=== PATIENT | female | born 1955 ===

== ENCOUNTER 2024-10-09 15:25 | Outpatient (REF) | payer OTHER, SELFPAY ==
[2024-10-09 15:53] LABS: Hematocrit 41.7 % (36.0-48.0); Hemoglobin 12.8 g/dL (12.0-16.0); Mean Corpuscular HGB Conc 30.7 g/dL (29.9-35.2); Mean Corpuscular Volume 107.5 fL (81.0-99.0); Platelet Count 74 10^3/uL (150-450); Red Blood Count 3.88 10^6/uL (4.20-5.40); Red Cell Distribution Width 17.6 % (11.0-15.0); White Blood Count 12.1 10^3/uL (4.0-11.0)
[2024-10-09 16:19] LABS: Lymphocytes Absolute Manual 1.93 10^3/uL (1.20-3.80); Monocytes Absolute Manual 0.48 10^3/uL (0.30-0.80); Segmented Neut Absolute Manual 9.68 10^3/uL (1.4-6.5)
== END 2024-10-09 15:26 | disposition home or self-care (01) ==
LOC: LAB 15:25
PROVIDERS: PCP Family Medicine; Visit Provider Family Medicine
DX: Z79.899 Other long term (current) drug therapy (principal)
CPT/HCPCS: 36415; 85007; 85027

== ENCOUNTER 2024-10-11 10:59 | Emergency (ER) | payer OTHER, SELFPAY ==
[2024-10-11] VITALS (44 sets, daily range): BP systolic 50–103; BP diastolic 0–68; PULSE 77–114; TEMP 36.7; O2SAT 34–100; BMI 27.5
--- NOTE | 2024-10-11 11:02 | ECG_ITS ---
[facility] Test Date: 2024-10-11 Pat Name: VIDHI MONTELONGO Department: Room: - Gender: Female [employer]: : 1955 Requested By: 1030 Order Number: [id number] Reading MD: GHASSAN DOMÍNGUEZ M.D. Measurements Intervals [place] Rate: 110 P: 70 SC: 164 QRS: -31 QRSD: 72 T: 18 QT: 344 QTc: 409 Interpretive Statements 1120 Sinus tachycardia 3333 Anterolateral myocardial infarction, probably old 3634 Inferior myocardial infarction, age undetermined 8102 Low QRS voltage in chest leads 9150 abnormal ECG No previous ECG available for comparison Electronically Signed On 10-11-2024 15:59:44 EDT by GHASSAN DOMÍNGUEZ M.D.
--- NOTE | 2024-10-11 11:03 | ED.GENADUL1 ---
HPI HPI - General Adult General Chief complaint: Altered Mental Status Stated complaint: SOB LOW PULSE OX Time Seen by Provider: 10/11/24 11:01 History of Present Illness HPI narrative: 68-year-old female presents to the emergency department for apparent altered mental status. [facility] and they were reportedly called for low blood pressure and they transported her here. She reportedly had low blood pressure yesterday as well. She has dementia and is unable to give us any history. It is not clear what her baseline is. No further history is obtainable. Related Data Home Medications ?Medication ?Instructions ?Recorded ?Confirmed albuterol sulfate 2.5 mg/3 mL 2.5 mg inhalation Q6H PRN 10/11/24 10/11/24 (0.083 %) solution for nebulization shortness of breath or wheezing amiodarone 200 mg tablet 200 mg PO DAILY 10/11/24 10/11/24 apixaban 2.5 mg tablet (Eliquis) 2.5 mg PO BID 10/11/24 10/11/24 aspirin 81 mg chewable tablet 81 mg PO DAILY 10/11/24 10/11/24 atorvastatin 40 mg tablet 40 mg PO QPM 10/11/24 10/11/24 escitalopram oxalate 5 mg tablet 5 mg PO DAILY 10/11/24 10/11/24 fludrocortisone 0.1 mg tablet 0.1 mg PO DAILY 10/11/24 10/11/24 lactulose 10 gram/15 mL oral 23 ml PO DAILY 10/11/24 10/11/24 solution metoprolol succinate 25 mg 25 mg PO DAILY 10/11/24 10/11/24 tablet,extended release 24 hr midodrine 10 mg tablet 10 mg PO Q8H PRN hypotension 10/11/24 10/11/24 midodrine 10 mg tablet 10 mg PO TID 10/11/24 10/11/24 mirtazapine 15 mg tablet (Remeron) 7.5 mg PO .QHS 10/11/24 10/11/24 nicotine 14 mg/24 hr daily 1 patch transdermal DAILY 10/11/24 10/11/24 transdermal patch (Nicoderm CQ) omeprazole 20 mg capsule,delayed 20 mg PO DAILY 10/11/24 10/11/24 release ondansetron HCl 4 mg tablet 4 mg PO Q8H PRN nausea and vomiting 10/11/24 10/11/24 sevelamer HCl 800 mg tablet 800 mg PO TID 10/11/24 10/11/24 Allergies Allergy/AdvReac Type Severity Reaction Status Date / Time No Known Drug Allergies Allergy Verified 10/11/24 12:16 Opioid HPI Opioid Management Most Recent Opioid Data: No Data to Display Review of Systems ROS Narrative Not obtainable, dementia Exam Narrative Exam Narrative: Nurses note and vital signs reviewed and patient is not hypoxic. General: The patient appears confused and in no apparent respiratory distress Skin: Cool on her extremities. She has some mottling in her feet and hands Head: Normocephalic, atraumatic Eye: Normal conjunctiva, no drainage Ears, Nose, Mouth, and Throat: oral mucosa is dry. Nares patent. Cardiovascular: Regular Rate and Rhythm Respiratory: Patient is in no distress, no accessory muscle use, lungs are clear to auscultation, no wheezing, rales or rhonchi GI: Soft and no apparent tenderness Musculoskeletal: Feet and hands are cool to touch. Neurological: She does not seem to follow commands Psychiatric: Cannot be assessed Constitutional Vital Signs, click to edit/add: Last Vital Signs Temp 98.1 F 10/11/24 13:58 Pulse 89 10/11/24 13:22 Resp 18 10/11/24 13:22 BP 72/48 L 10/11/24 14:15 Pulse Ox 96 10/11/24 13:22 O2 Del Method Room Air 10/11/24 10:58 Course Vital Signs Vital signs: Vital Signs Pulse Rate 107 H 10/11/24 10:58 Respiratory Rate 16 10/11/24 10:58 Pulse Oximetry 88 L 10/11/24 10:58 Oxygen Delivery Method Room Air 10/11/24 10:58 Temperature 98.1 F 10/11/24 13:58 Pulse Rate 89 10/11/24 13:22 Respiratory Rate 18 10/11/24 13:22 Blood Pressure 72/48 L 10/11/24 14:15 Pulse Oximetry 96 10/11/24 13:22 Oxygen Delivery Method Room Air 10/11/24 10:58 Medical Decision Making MDM Narrative Medical decision making narrative: The patient presented with altered mental status and low blood pressure. Peripheral IV access was not possible so her dialysis port was utilized for blood draw and for IV fluids and antibiotics. She is also being started on Levophed after being given 1 L of normal saline. I have spoken to Dr. Mcmahon at [facility] who agrees with this treatment plan including no further large amounts of IV fluids and starting Levophed. The patient was given vancomycin and Zosyn here. Findings are discussed thoroughly with her significant other, Sushila, who requested transfer to [facility]. Initial troponin was elevated and repeat is ordered and pending. This elevated troponin is likely due to her renal failure and hypotension. Differential Diagnosis Differential Diagnosis: Pneumonia, COVID, influenza, UTI, sepsis Lab Data Lab results reviewed: Yes I reviewed the patient's lab results Labs: Lab Results 10/11/24 10/11/24 10/11/24 Range/Units 11:36 12:08 12:12 WBC 21.1 H (4.0-11.0) 10^3/uL RBC 4.09 L (4.20-5.40) 10^6/uL Hgb 13.5 (12.0-16.0) g/dL Hct 43.9 (36.0-48.0) % MCV 107.3 H (81.0-99.0) fL MCH 33.0 (26.7-34.0) pg MCHC 30.8 (29.9-35.2) g/dL RDW 18.3 H (11.0-15.0) % Plt Count 70 L (150-450) 10^3/uL MPV 12.3 (9.5-13.5) fL Neut % (Auto) 90.8 H (43.0-75.0) % Lymph % (Auto) 4.8 L (20.5-60.0) % Nance % (Auto) 3.1 (1.7-12.0) % Eos % (Auto) 0.0 L (0.9-7.0) % Baso % (Auto) 0.2 (0.2-2.0) % Neut # (Auto) 19.2 H (1.4-6.5) 10^3/uL Lymph # (Auto) 1.0 L (1.2-3.8) 10^3/uL Nance # (Auto) 0.7 (0.3-0.8) 10^3/uL Eos # (Auto) 0.0 (0.0-0.7) 10^3/uL Baso # (Auto) 0.1 (0.0-0.1) 10^3/uL Abs Immat Gran (auto) 0.24 H (0.00-0.03) 10^3/uL Imm/Tot Granulo (auto) 1.1 H (0.0-0.5) % Sodium 147 H (136-145) mmol/L Potassium 4.6 (3.5-5.1) mmol/L Chloride 104 (98-107) mmol/L Carbon Dioxide 15.2 L (21.0-32.0) mmol/L Anion Gap 32.4 BUN 58.0 H (7.0-18.0) mg/dL Creatinine 8.17 H* (0.55-1.02) mg/dL Est GFR ( Amer) 6 L (>=60 mL/min/1.73m^2) Est GFR (Non-Af Amer) 5 L (>=60 mL/min/1.73m^2) BUN/Creatinine Ratio 7.1 Glucose 139 H (74-106) mg/dL Lactate 12.4 H* (0.4-2.0) mmol/L Calcium 10.4 H (8.5-10.1) mg/dL Troponin I High Sens 595.5 H* (4.0-51.3) pg/mL Urine Color (YELLOW) Urine Clarity (CLEAR) Urine pH (5.0-9.0) Ur Specific [place] (1.005-1.025) Urine Protein (NEG/TRACE) mg/dL Urine Glucose (UA) (NEGATIVE) mg/dL Urine Ketones (NEGATIVE) mg/dL Urine Occult Blood (NEGATIVE) Urine Nitrite (NEGATIVE) Urine Bilirubin (NEGATIVE) Urine Urobilinogen (0.2-1.0) EU/dL Ur Leukocyte Esterase (NEGATIVE) Urine RBC (0-2) #/HPF Urine WBC (NONE SEEN) #/HPF Ur Squamous Epith Cells (NONE/RARE) #/LPF Urine Crystals (None Seen) #/HPF Urine Bacteria (NONE SEEN) #/HPF Urine Casts (NONE SEEN) #/LPF Urine Mucus (NONE SEEN) Ur Culture Indicated? Influenza Type A Ag Negative Influenza Type B Ag Negative SARS-CoV-2 Ag (CV2AG) Negative (NEGATIVE) 10/11/24 Range/Units 13:21 WBC (4.0-11.0) 10^3/uL RBC (4.20-5.40) 10^6/uL Hgb (12.0-16.0) g/dL Hct (36.0-48.0) % MCV (81.0-99.0) fL MCH (26.7-34.0) pg MCHC (29.9-35.2) g/dL RDW (11.0-15.0) % Plt Count (150-450) 10^3/uL MPV (9.5-13.5) fL Neut % (Auto) (43.0-75.0) % Lymph % (Auto) (20.5-60.0) % Nance % (Auto) (1.7-12.0) % Eos % (Auto) (0.9-7.0) % Baso % (Auto) (0.2-2.0) % Neut # (Auto) (1.4-6.5) 10^3/uL Lymph # (Auto) (1.2-3.8) 10^3/uL Nance # (Auto) (0.3-0.8) 10^3/uL Eos # (Auto) (0.0-0.7) 10^3/uL Baso # (Auto) (0.0-0.1) 10^3/uL Abs Immat Gran (auto) (0.00-0.03) 10^3/uL Imm/Tot Granulo (auto) (0.0-0.5) % Sodium (136-145) mmol/L Potassium (3.5-5.1) mmol/L Chloride (98-107) mmol/L Carbon Dioxide (21.0-32.0) mmol/L Anion Gap BUN (7.0-18.0) mg/dL Creatinine (0.55-1.02) mg/dL Est GFR ( Amer) (>=60 mL/min/1.73m^2) Est GFR (Non-Af Amer) (>=60 mL/min/1.73m^2) BUN/Creatinine Ratio Glucose (74-106) mg/dL Lactate (0.4-2.0) mmol/L Calcium (8.5-10.1) mg/dL Troponin I High Sens (4.0-51.3) pg/mL Urine Color Dk. red (YELLOW) Urine Clarity Turbid A (CLEAR) Urine pH Color interference A (5.0-9.0) Ur Specific [place] 1.020 (1.005-1.025) Urine Protein Color interference A (NEG/TRACE) mg/dL Urine Glucose (UA) Color interference A (NEGATIVE) mg/dL Urine Ketones Color interference A (NEGATIVE) mg/dL Urine Occult Blood Color interference A (NEGATIVE) Urine Nitrite Color interference A (NEGATIVE) Urine Bilirubin Color interference A (NEGATIVE) Urine Urobilinogen Color interference A (0.2-1.0) EU/dL Ur Leukocyte Esterase Color interference A (NEGATIVE) Urine RBC 20-50 A (0-2) #/HPF Urine WBC >100 A (NONE SEEN) #/HPF Ur Squamous Epith Cells None seen (NONE/RARE) #/LPF Urine Crystals None seen (None Seen) #/HPF Urine Bacteria Small A (NONE SEEN) #/HPF Urine Casts None seen (NONE SEEN) #/LPF Urine Mucus Large A (NONE SEEN) Ur Culture Indicated? Yes-[facility] Influenza Type A Ag Influenza Type B Ag SARS-CoV-2 Ag (CV2AG) (NEGATIVE) Imaging Data CT brain, chest x-ray: Radiologist's impression: CT brain: No consolidation, no pulmonary edema, pleural effusion or pneumothorax. ECG Data Attestation: I personally reviewed and interpreted this ECG as follows: (EKG on my interpretation shows sinus rhythm with a rate of 110 and some artifact.) Critical Care Time Critical Care Time Critical Care Time: Yes Total Critical Care Time: 100 Attestation: Due to the high probability of sudden and clinically significant deterioration in the patient's condition he/she required the highest level of my preparedness to intervene urgently I provided critical care time including documentation time, medication orders and management, reevaluation, vital sign assessment, ordering and reviewing of lab tests, ordering and reviewing of x-ray studies, and admission orders. Aggregate critical care time is 100 minutes including only time during which I was engaged in work directly related to his/her care and did not include time spent treating other patients simultaneously. Discharge Plan Discharge Chief Complaint: Altered Mental Status Clinical Impression: Acute UTI, Septic shock Patient Disposition: [facility] Time of Disposition Decision: 14:25 Discharge Location: [facility] Condition: Critical Mode of Transportation: EMS
[2024-10-11 11:50] LABS: Basophils Absolute Auto 0.1 10^3/uL (0.0-0.1); Basophils Percent Auto 0.2 % (0.2-2.0); Hematocrit 43.9 % (36.0-48.0); Hemoglobin 13.5 g/dL (12.0-16.0); Immature Granulocytes Abs Auto 0.24 10^3/uL (0.00-0.03); Immature Granulocytes Pct Auto 1.1 % (0.0-0.5); Lymphocytes Percent Auto 4.8 % (20.5-60.0); Mean Corpuscular HGB Conc 30.8 g/dL (29.9-35.2); Mean Corpuscular Volume 107.3 fL (81.0-99.0); Mean Platelet Volume 12.3 fL (9.5-13.5); Monocytes Absolute Auto 0.7 10^3/uL (0.3-0.8); Monocytes Percent Auto 3.1 % (1.7-12.0); Neutrophils Absolute Auto 19.2 10^3/uL (1.4-6.5); Neutrophils Percent Auto 90.8 % (43.0-75.0); Platelet Count 70 10^3/uL (150-450); Red Cell Distribution Width 18.3 % (11.0-15.0); White Blood Count 21.1 10^3/uL (4.0-11.0)
[2024-10-11 12:10] LABS: Anion Gap 32.4; BUN Creatinine Ratio 7.1; Calcium 10.4 mg/dL (8.5-10.1); Carbon Dioxide 15.2 mmol/L (21.0-32.0); Chloride 104 mmol/L (98-107); Estimated GFR (African America 6 (>=60 mL/min/1.73m^2); Estimated GFR (Non-African Ame 5 (>=60 mL/min/1.73m^2); Glucose 139 mg/dL (74-106); Potassium 4.6 mmol/L (3.5-5.1); Sodium 147 mmol/L (136-145)
[2024-10-11 12:15] LABS: Troponin I High Sensitivity 595.5 pg/mL (4.0-51.3)
[2024-10-11] MEDS: 0.9 % SODIUM CHLORIDE 1,000 ML 1000 ML IV (12:22)
[2024-10-11 12:27] LABS: Red Blood Count 4.09 10^6/uL (4.20-5.40)
--- NOTE | 2024-10-11 12:27 | PC.NURSE ---
after multiple attempts for IV. Sadiq CANO called and spoke to Aida who used to be the head of Dialysis department with [facility] to ask if patients dialysis port could be used for fluids. per Aida the blue port can be used after drawing off the heparin. Dr. Fontaine notified and is ok with us using patients dialysis port.
[2024-10-11 12:34] LABS: Influenza Virus A Antigen Negative; Influenza Virus B Antigen Negative; Internal Control Within Normal Limits; SARS-CoV-2 Ag NEGATIVE (NEGATIVE)
[2024-10-11 12:59] LABS: Lactate/Lactic Acid 12.4 mmol/L (0.4-2.0)
[2024-10-11 13:29] LABS: Clarity Urine TURBID (CLEAR); Color Urine DK. RED (YELLOW)
[2024-10-11 13:30] LABS: Bilirubin Urine COLOR INTERFERENCE (NEGATIVE); Blood Urine COLOR INTERFERENCE (NEGATIVE); Glucose Urine UA COLOR INTERFERENCE mg/dL (NEGATIVE); Ketones Urine COLOR INTERFERENCE mg/dL (NEGATIVE); Leukocyte Esterase Urine COLOR INTERFERENCE (NEGATIVE); Nitrite Urine COLOR INTERFERENCE (NEGATIVE); Protein Urine COLOR INTERFERENCE mg/dL (NEG/TRACE); Urobilinogen Urine COLOR INTERFERENCE EU/dL (0.2-1.0); pH Urine COLOR INTERFERENCE (5.0-9.0)
[2024-10-11 13:39] LABS: WBC Urine >100 #/HPF (NONE SEEN)
[2024-10-11 13:41] LABS: Bacteria Urine SMALL #/HPF (NONE SEEN); Mucus Urine LARGE (NONE SEEN); RBC Urine 20-50 #/HPF (0-2)
[2024-10-11 13:42] LABS: Cast Seen? NONE SEEN #/LPF (NONE SEEN); Crystals Seen? None Seen #/HPF (None Seen); Squamous Epithelial Cell Urine NONE SEEN #/LPF (NONE/RARE); Urine Culture Indicated YES-FRMC
[2024-10-11] MEDS: PIPERACILLIN SODIUM/TAZOBACTAM 3.375 GM in 0.9 % SODIUM CHLORIDE 50 ML IV (13:53)
[2024-10-11] MEDS: MIDODRINE HCL 5 MG TABLET 10 MG PO (13:53)
[2024-10-11] MEDS: VANCOMYCIN HCL 1,000 MG in 0.9 % SODIUM CHLORIDE 250 ML 250 MG IV (14:27)
[2024-10-11 15:24] LABS: Lactate/Lactic Acid 8.3 mmol/L (0.4-2.0)
[2024-10-11] MEDS: NOREPINEPHRINE BITARTRATE 4 MG in DEXTROSE 5 % IN WATER 250 ML 30.48 MG IV (15:29)
[2024-10-11 15:31] LABS: Troponin I High Sensitivity 527.3 pg/mL (4.0-51.3)
== END 2024-10-11 17:02 | disposition short-term general hospital (02) ==
PROVIDERS: Emergency Provider Emergency Medicine; PCP Family Medicine
DX: A41.9 Sepsis, unspecified organism (principal); N39.0 Urinary tract infection, site not specified; R65.21 Severe sepsis with septic shock; F03.90 Unspecified dementia, unspecified severity, without behavioral disturbance, psychotic disturbance, mood disturbance, and anxiety
CPT/HCPCS: 36415; 70450; 71045; 80048; 81001; 83605; 84484; 85025; 87040; 87086; 87804; 87811; 93005; 96361; 96365; 96366; 96367; 96368; 99285; J2543; J3370